=== PATIENT | female | born 1930 | race Caucasian/White ===

== ENCOUNTER → 2018-01-03 | Emergency (ER) | payer OTHER ==
[~2018-01-03] VITALS: Ht 142.2 cm; Wt 54.4 kg
[~2018-01-03] MED LIST: FOSAMAX PLUS D1 EACH; GLIPIZIDE5 MG; ISOSORBIDE DINI30 MG; LIPITOR20 MG; METFORMIN HCL500 MG; SYNTHROID50 MCG; VASOTEC5 MG; VITAMIN D310000 UNIT
== END | disposition home or self-care (01) ==
LOC: ER 16:53 → EDBD 17:05 → ER 17:05
DX: J06.9 Acute upper respiratory infection, unspecified (principal); J11.1 Influenza due to unidentified influenza virus with other respiratory manifestations